=== PATIENT | female | born 1960 | race Caucasian/White ===

== ENCOUNTER 2018-02-16 00:02 | Inpatient (IN) ==
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
[2018-02-16 03:08] LABS: Baso % (Auto) 0.4 % (0.0-2.0); Eos % (Auto) 0.2 % (0.0-4.0); Hematocrit 31.6 % (35.0-46.0); Hemoglobin 10.8 gm/dL (11.6-15.3); Lymph # (Auto) 1.9 th/mm3 (1.0-4.8); Lymph % (Auto) 17.7 % (9.0-44.0); Mean Corpuscular HGB Conc 34.4 % (32.0-36.0); Mean Corpuscular Hemoglobin 32.9 pg (27.0-34.0); Mean Corpuscular Volume 95.9 fL (80.0-100.0); Mean Platelet Volume 7.6 fL (7.0-11.0); Mono # (Auto) 1.3 th/mm3 (0.0-0.9); Mono % (Auto) 12.3 % (0.0-8.0); Neut # (Auto) 7.6 th/mm3 (1.8-7.7); Neut % (Auto) 69.4 % (16.0-70.0); Platelet Count 249 th/mm3 (150-450); Red Blood Count 3.29 mil/mm3 (4.00-5.30); Red Cell Distribution Width 14.2 % (11.6-17.2)
[2018-02-16 03:37] LABS: Albumin 3.6 g/dL (3.4-5.0); Anion Gap 15 meq/L (5-15); Aspartate Aminotransferase 24 U/L (15-37); Blood Urea Nitrogen 4 mg/dL (7-18); Calcium 8.5 mg/dL (8.5-10.1); Carbon Dioxide 23.2 meq/L (21.0-32.0); Chloride 90 meq/L (98-107); Glomerular Filtration Rate Greater Than 89 mL/min (>89); Glucose,Random 86 mg/dL (74-106); Potassium 3.3 meq/L (3.5-5.1); Sodium 128 meq/L (136-145)
[2018-02-16 03:40] LABS: Alanine Aminotransferase 13 U/L (10-53); Alkaline Phosphatase 80 U/L (45-117); Total Protein 7.1 g/dL (6.4-8.2)
[2018-02-16] MEDS ORDERED: Chlorhexidine Gluconate 2% 1 Pack (2 Cloths) TOPICAL PRN (04:00)
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
[2018-02-16] MEDS: HYDROmorphone PF Inj 2 MG/ML Vial IV.PUSH PRN ×3 (04:55→10:04)
[2018-02-16] MEDS: Sod Chloride 0.9% Inj 1,000 ML IV.CONT SCH ×3 (05:22→22:20)
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
[2018-02-16] MEDS ORDERED: Potassium Chlor 20 mEq Premix 20 MEQ/100 ML PIGGYBACK IV.SIG ONE (08:00)
[2018-02-16] MEDS: Chlorhexidine Gluconate 2% 1 Pack (2 Cloths) TOPICAL SCH (08:29)
[2018-02-16] MEDS: Famotidine 20 MG Tablet PO SCH ×2 (08:55→20:00)
[2018-02-16] MEDS: Senna/Docusate Sodium 8.6/50 MG Tablet PO SCH ×2 (08:55→20:01)
--- NOTE | 2018-02-16 09:37 | XR ---
EXAM DATE: 02/16/2018 9:34 AM EDT AGE/SEX: 57 years / Female INDICATIONS: Pain. CLINICAL DATA: This is the patient's subsequent encounter. Patient reports that signs and symptoms h ave been present for 1 day and indicates a pain score of Nonresponsive. MEDICAL/SURGICAL HISTORY: Non-responsive. Non-responsive. COMPARISON: [facility] [place], [place], CT CHEST W CONTRAST, 02/16/2018. . FINDINGS: Single AP portable view of the left shoulder demonstrates a comminuted mildly displaced fracture of t he left humeral head. There is callus formation at the surgical neck consistent with a prior fracture . The bones appear normal in mineralization. CONCLUSION: Comminuted mildly displaced fracture of the left humeral head. Electronically signed by: Chasidy Moreno MD 02/16/2018 9:36 AM EDT
--- NOTE | 2018-02-16 09:39 | XR ---
EXAM DATE: 02/16/2018 9:33 AM EDT AGE/SEX: 57 years / Female INDICATIONS: Pain. CLINICAL DATA: This is the patient's subsequent encounter. Patient reports that signs and symptoms h ave been present for 1 day and indicates a pain score of Nonresponsive. MEDICAL/SURGICAL HISTORY: Non-responsive. Non-responsive. COMPARISON: [facility] [place], CT CHEST W CONTRAST, 02/16/2018. . FINDINGS: Comminuted fracture involving the distal right clavicle. Surgical plate and screws traverse the right humeral head. There is a fracture through the surgical neck. CONCLUSION: Comminuted fractures involving the distal right clavicle and surgical neck of the right humerus. Electronically signed by: Chasidy Moreno MD 02/16/2018 9:37 AM EDT
[2018-02-16] MEDS ORDERED: Metoprolol Tartrate 25 MG Tablet PO SCH (11:00)
--- NOTE | 2018-02-16 11:39 | MB ---
cc: Zenon Lewis MD DATE: 02/16/2018 REASON FOR CONSULTATION: Bilateral shoulder fractures. HISTORY OF PRESENT ILLNESS: This patient is a middle age female who was initially transferred from [facility]. She was initially in a [place] [facility] facility and was initially brought to [facility] after a reported fall and was found on the floor. They did CT scans of the head and neck and she was diagnosed with multiple compression fractures of the thoracic spine. She was also diagnosed with a left humerus fracture. She was transferred to the General Surgery trauma surgeon, Dr. Luevano, who accepted the transfer and the patient has been placed in the intensive care unit. Orthopedic Surgery has been consulted for evaluation of her left proximal humerus fracture and right clavicle fracture. The patient is a very poor historian. She states she has poor balance and multiple falls, but it is hard to get any further detailed history from the patient regarding her past history. PAST MEDICAL HISTORY: Positive for multiple falls. SOCIAL HISTORY: Nonsmoker, nondrinker, does not use drugs. REVIEW OF SYSTEMS: She is awake and alert, but again forgetful. She does complain of back pain, but otherwise negative for 10 systems other than HPI. PHYSICAL EXAMINATION: GENERAL: The patient is lying in bed. She has a cervical collar intact. She is awake. She is alert. She is a poor historian. She is in no acute distress. VITAL SIGNS: Temperature is 98, pulse is 89, respiration rate is 16, blood pressure 109/79. HEENT: Normocephalic, atraumatic. Pupils round. No scleral icterus. NECK: Supple. LUNGS: Clear. HEART: Regular rate and rhythm. ABDOMEN: Soft, nontender. EXTREMITIES: She is currently wearing a sling to her left upper extremity. She has swelling, tender to palpation of the left shoulder with restricted passive motion associated with pain. She can flex and extend her wrist and digits distally. Neurovascularly intact distally. Right shoulder has tenderness in the region of the distal clavicle. Again pain with passive motion of the right shoulder. She is neurovascularly intact distally. IMAGING STUDIES: X-rays of the left shoulder were reviewed. Portable AP view obtained in the intensive care unit showed evidence of a comminuted proximal humerus fracture which is in relatively good displacement. X-rays of the right clavicle shows an acute distal clavicle fracture which is in relatively good alignment. She appears to have evidence of prior open reduction and internal fixation of a right proximal humerus fracture with a proximal locking plate intact. The fracture and hardware are only partially visualized on this film. IMPRESSION: This is a middle-aged female, poor historian, history of a recent fall. She has a left comminuted proximal humerus fracture which is in good alignment. She has a right distal third clavicle fracture. She has a history of prior open reduction and internal fixation of a right clavicle fracture with a proximal locking plate only partially visualized on x-rays of the clavicle. She has multiple age indeterminate thoracic spine compression fractures based on CT scan. PLAN: I discussed the diagnosis with the patient and in regard to orthopedic standpoint, I would recommend nonoperative treatment for the left proximal humerus fracture with use of a sling and swathe immobilizer. She can use a sling for the right distal clavicle fracture as well. I expect this to heal without surgery. I have also ordered an x-ray of the right shoulder to further detail her prior injury and to make sure the hardware is still intact. I would defer the multiple thoracic spine fractures and treatment to neurosurgery. I discussed the findings with the patient and patient's questions have all been answered. MD LINWOOD Veliz/BRET , 10:52 AM , 11:37 AM
--- NOTE | 2018-02-16 11:43 | XR ---
EXAM DATE: 02/16/2018 11:38 AM EDT AGE/SEX: 57 years / Female INDICATIONS: Pain CLINICAL DATA: This is the patient's subsequent encounter. Patient reports that signs and symptoms h ave been present for 1 day and indicates a pain score of Nonresponsive. MEDICAL/SURGICAL HISTORY: Non-responsive. Non-responsive. COMPARISON: [facility] [place], [place], 02/16/2018. . FINDINGS: Single AP portable view of the right shoulder demonstrates a comminuted fracture involving the distal right clavicle. There is surgical plate and screws traversing a right surgical neck fracture. There appears to be normal glenohumeral alignment. The ribs appear intact. CONCLUSION: Comminuted fracture involving the distal right clavicle. Surgical hardware traversing a right femoral neck fracture. Chronicity of this fracture is unknown. Electronically signed by: Chasidy Moreno MD 02/16/2018 11:42 AM EDT
--- NOTE | 2018-02-16 12:48 | P.HPCC ---
History of Present Illness Primary Care Physician: UNKNOWN History of Present Illness: 57-year-old female transfer from outside institution after a fall, report was that patient had a T1 compression fracture, right humeral head fracture. Imaging performed here does not confirm these finding, patient has multiple old subacute T-spine fractures. She has right humeral head fracture, she is neurologically intact hemodynamically normal. Inpatient Certification: I certify that the inpatient services were ordered in accordance with Medicare regulations governing the order. This includes certification that hospital inpatient services are reasonable and necessary and in the case of services not specified as inpatient-only under 42 CFR 419.22(n), that they are appropriately provided as inpatient services in accordance to with the 2-midnight benchmark under 43 CFR 412.3(e) Estimated Total Length of Stay (Days): 5 Plans for Post Hospital Care: Home Review of Systems Constitutional: Reports body ache(s), Reports fatigue, Denies anorexia, Denies chills, Denies daytime sleepiness, Denies excessive sweating, Denies fever(s), Denies headache(s), Denies increased appetite, Denies lack of energy, Denies malaise, Denies night sweats, Denies weakness, Denies weight gain, Denies weight loss, Denies other Eyes: Denies blind spots, Denies blurry vision, Denies bulging eyes, Denies change in vision, Denies double vision, Denies discharge, Denies dry eyes, Denies floaters, Denies irritation, Denies itchy eyes, Denies loss of vision, Denies pain, Denies requires corrective lenses, Denies sensitivity to light, Denies other Ears, Nose, Mouth, and Throat: Denies abnormal hearing, Denies bleeding gums, Denies bad breath, Denies change in voice, Denies dental pain, Denies difficulty swallowing, Denies dizziness, Denies dry mouth, Denies ear discharge , Denies ear pain, Denies facial pain, Denies headache(s), Denies hearing loss, Denies hoarseness, Denies lip swelling, Denies nosebleed, Denies mouth lesions, Denies mouth pain, Denies nasal congestion, Denies nasal discharge, Denies nasal obstruction, Denies nasal trauma, Denies neck lump, Denies neck pain, Denies nose pain, Denies pain with swallowing, Denies poor balance, Denies post nasal drip, Denies ringing in the ears, Denies sinus pain, Denies sinus pressure , Denies sore throat, Denies throat swelling, Denies tongue swelling, Denies other Cardiovascular: Denies chest pain, Denies chest pain at rest, Denies chest pain with activity, Denies excessive sweating, Denies fainting, Denies fast heart rate, Denies foot swelling, Denies generalized swelling, Denies irregular heart rhythm, Denies leg pain with activity, Denies leg sores, Denies leg swelling, Denies lightheadedness, Denies radiating jaw, neck or arm pain, Denies rapid, pounding, or irregular heartbeat, Denies shortness of breath, Denies shortness of breath with activity, Denies shortness of breath when lying down, Denies shortness of breath causing sudden awakening, Denies slow heart rate, Denies other Respiratory: Denies change in phlegm color, Denies chest congestion, Denies cough, Denies coughing up blood, Denies excessive phlegm production, Denies pain on inspiration, Denies pain with cough, Denies shortness of breath, Denies shortness of breath with activity, Denies snoring, Denies stridor, Denies wheezing, Denies other Gastrointestinal: Denies abdominal pain, Denies belching, Denies black, tarry stools, Denies bloating, Denies bright, red blood in stools, Denies change in bowel habits, Denies constant urge to pass stool, Denies change in stools, Denies coffee ground vomit, Denies constipation, Denies cramping, Denies difficulty swallowing, Denies excessive passing of gas, Denies feeling full early, Denies heartburn, Denies incontinent of stools, Denies loose stools, Denies nausea, Denies pain with swallowing, Denies vomiting, Denies vomiting blood, Denies other Musculoskeletal: Denies abnormal walking, Denies back pain, Denies body aches, Denies decreased muscle mass, Denies deformity, Denies joint pain, Denies joint swelling, Denies limited joint movement, Denies loss of height, Denies muscle cramps, Denies muscle weakness, Denies neck pain, Denies numbness, Denies radiating pain into limb, Denies stiffness, Denies tingling, Denies other Skin/Breast: Denies acne, Denies bleeding lesions, Denies boil, Denies breast swelling, Denies breast skin changes, Denies breast pain, Denies breast lump, Denies change in breast shape, Denies change in hair, Denies change in skin color, Denies changing lesions, Denies dry skin, Denies excessive hair growth, Denies hair loss, Denies itching, Denies lesions, Denies nail changes, Denies new lesions, Denies nipple discharge, Denies non-healing lesions, Denies redness , Denies sensitivity to light, Denies rash, Denies skin pain, Denies skin ulcer , Denies sores, Denies stretch jimenez, Denies unusual bruising, Denies wounds, Denies yellowing of the skin, Denies other Neurologic: Denies abnormal hearing, Denies abnormal movements, Denies abnormal speech, Denies abnormal walking, Denies behavioral changes, Denies burning sensations, Denies confusion, Denies dizziness, Denies fainting, Denies frequent falls, Denies headache(s), Denies lack of coordination, Denies localized weakness, Denies loss of vision, Denies memory loss, Denies numbness, Denies other visual disturbances, Denies radiating pain, Denies restless legs, Denies convulsions, Denies seizure-like activity, Denies sensory deficit, Denies tingling, Denies tingling/numbness/burning sensations, Denies tremor(s), Denies unsteadiness, Denies weakness, Denies other Psychiatric: Denies abnormal sleep pattern, Denies anxiety, Denies behavioral changes, Denies change in appetite, Denies change in sex drive, Denies confusion , Denies depression, Denies difficulty concentrating, Denies hearing things others do not hear, Denies hopelessness, Denies irritability, Denies lack of enjoyment, Denies memory loss, Denies mood swings, Denies panic attacks, Denies paranoia, Denies seeing things others do not see, Denies sensing things others do not sense, Denies tactile hallucinations, Denies thoughts of hurting/killing others, Denies thoughts of hurting/killing yourself, Denies other Endocrine: Denies cold intolerance, Denies excessive sweating, Denies flushing, Denies heat intolerance, Denies increased hunger, Denies increased thirst, Denies increased urination, Denies rapid, pounding, or irregular heartbeat, Denies other Hematologic/Lymphatic: Denies easy bleeding, Denies easy bruising, Denies enlarged lymph nodes, Denies other Allergic/Immunologic: Denies GI upset with certain foods, Denies hives, Denies itchy eyes, Denies lip swelling, Denies seasonal runny nose, Denies throat swelling, Denies tongue swelling, Denies wheezing, Denies other PMFSH - History History Provided By: Patient - Tobacco History Second Hand Smoke Exposure: No Tobacco Use In Past 30 Days: No Smoking Status: Former smoker Tobacco Type: Cigarettes - Alcohol History How Often Do You Have a Drink Containing Alcohol: 2 to 3 times a week - Substance Use History Substance History: No History of Abuse - Immunization History Tetanus Immunization: Unsure Hx Influenza Vaccine This Season: No Medications and Allergies Active Medications: Active Medications Al Hydroxide/Mg Hydroxide (Milk Of Rich Zamudio) 30 ml PO BID [facility] Last Admin: 02/16/18 08:55 Dose: Not Given Chlorhexidine Gluconate (Chlorhexidine 2% Cloth) 3 pack TOPICAL DAILY@0400 [facility] Stop: 02/21/18 03:59 Last Admin: 02/16/18 08:29 Dose: Not Given Chlorhexidine Gluconate (Chlorhexidine 2% Cloth) 3 pack TOPICAL DAILY@0400 PRN PRN Reason: Extra cloth needed Stop: 02/21/18 03:59 Enalaprilat (Vasotec Inj) 1.25 mg IV.PUSH Q8H PRN PRN Reason: HYPERTENSION Last Admin: 02/16/18 11:16 Dose: 1.25 mg Famotidine (Pepcid) 20 mg PO BID [facility] Last Admin: 02/16/18 08:55 Dose: Not Given Hydromorphone HCl (Dilaudid Pf Inj) 0.5 mg IV.PUSH Q4H PRN PRN Reason: BREAKTHROUGH PAIN Last Admin: 02/16/18 10:04 Dose: 0.5 mg Sodium Chloride (Ns Inj) 1,000 mls @ 100 mls/hr IV.CONT .Q10H [facility] Last Admin: 02/16/18 12:29 Dose: 100 mls/hr Metoprolol Tartrate (Lopressor) 12.5 mg PO BID [facility] Ondansetron HCl (Zofran Inj) 4 mg IV.PUSH Q6H PRN PRN Reason: NAUSEA OR VOMITING Last Admin: 02/16/18 09:05 Dose: 4 mg Senna/Docusate Sodium (Althea-Colace) 1 tab PO BID [facility] Last Admin: 02/16/18 08:55 Dose: Not Given Allergies Allergy/AdvReac Type Severity Reaction Status Date / Time No Known Allergies Allergy Unverified 02/16/18 01:13 Home Medications Medication Instructions Recorded Confirmed Type No Known Home Medications 02/16/18 02/16/18 History Results - Labs CBC & Chem 7: 02/16/18 02:50 02/16/18 02:50 Labs: Short CBC 02/16/18 Range/Units 02:50 WBC 11.0 (4.0-11.0) th/mm3 Hgb 10.8 L (11.6-15.3) gm/dL Hct 31.6 L (35.0-46.0) % Plt Count 249 (150-450) th/mm3 BMP 02/16/18 02:50 Sodium 128 L Potassium 3.3 L Chloride 90 L Carbon Dioxide 23.2 BUN 4 L Creatinine 0.48 L Calcium 8.5 Liver Function 02/16/18 Range/Units 02:50 Total Bilirubin 0.5 (0.2-1.0) mg/dL AST 24 (15-37) U/L ALT 13 (10-53) U/L Alkaline Phosphatase 80 (45-117) U/L Albumin 3.6 (3.4-5.0) g/dL - Imaging Impressions Abdomen/Pelvis CT 02/16/18 00:00 CONCLUSION: No acute traumatic injury in the abdomen or pelvis. Cervical Spine CT 02/16/18 00:00 CONCLUSION: No acute bony injury in the cervical spine Chest CT 02/16/18 00:00 CONCLUSION: 1. Left proximal humeral fracture. Right clavicle fracture. Further evaluation of these areas with complete plain radiographic series of the left shoulder and right clavicle would be suggested. 2. No acute intrathoracic injury Clavicle X-Ray 02/16/18 00:00 CONCLUSION: Comminuted fractures involving the distal right clavicle and surgical neck of the right humerus. Head CT 02/16/18 00:00 CONCLUSION: No acute intracranial injury. Shoulder X-Ray 02/16/18 00:00 CONCLUSION: Comminuted mildly displaced fracture of the left humeral head. Shoulder X-Ray 02/16/18 00:00 CONCLUSION: Comminuted fracture involving the distal right clavicle. Surgical hardware traversing a right femoral neck fracture. Chronicity of this fracture is unknown. Thoracic Spine CT 02/16/18 02:11 CONCLUSION: Compression fracture injuries present throughout the visualized spine Exam Vital signs: Vital Signs 02/16/18 01:16 02/16/18 01:24 02/16/18 02:35 Temperature 98.6 F Pulse Rate 89 94 H Respiratory Rate 16 17 16 Blood Pressure 109/79 175/89 H 169/95 H Pulse Oximetry 98 98 100 02/16/18 07:34 02/16/18 08:00 02/16/18 09:00 Temperature 98.7 F Pulse Rate 86 78 85 Respiratory Rate 13 12 Blood Pressure 165/84 H 165/79 H Pulse Oximetry 97 94 L 02/16/18 12:00 Temperature 98.9 F Pulse Rate 72 Respiratory Rate 19 Blood Pressure 169/82 H Pulse Oximetry 100 Intake & Output 02/15/18 02/16/18 02/16/18 18:59 06:59 18:59 Intake Total 1100 / 1100 Balance 1100 / 1100 Weight 66.224 kg Intake: IV 1100 / 1100 NS Inj 1,000 ML @ 100 mls/hr IV 1000 / 1000 .CONT .Q10H [facility] Rx#:[id number] KCl 20 mEq Premix Inj 20 meq In 100 / 100 100 ml @ 50 mls/hr IV.SIG ONCE ONE Rx#:[id number] Other: Date of Last Bowel Movement 02/15/18 - Constitutional no acute distress - Routine HEENT Exam Head: Present: normocephalic, atraumatic Eye: Present: EOMI, PERRL, normal accommodation ENT: Present: mucous membranes moist, oropharynx clear, dentition normal - Routine Neck Exam Present: supple, full ROM - Routine Respiratory Exam Present: CTA bilaterally - Routine Abdominal Exam Present: soft, normoactive bowel sounds - Routine Extremities Exam Present: full ROM, pulses intact Comments: Right shoulder humerus head tender - Routine Skin Exam Present: intact - Routine Neurological Exam Present: alert, oriented X3 Caprini VTE Risk Assessment Caprini VTE Risk Assessment: No/Low Risk (score <= 1) Caprini Risk Assessment Model: Point Value = 1 Point Value = 2 Point Value = 3 Point Value = 5 Age 41-60 Minor surgery BMI > 25 kg/m2 Swollen legs Varicose veins or History of unexplained or recurrent spontaneous Oral contraceptives or hormone replacement Sepsis (< 1 month) Serious lung disease, including pneumonia (< 1 month) Abnormal pulmonary function Acute myocardial infarction Congestive heart failure (< 1 month) History of inflammatory bowel disease Medical patient at bed rest Age 61-74 Arthroscopic surgery Major open surgery (> 45 min) Laparoscopic surgery (> 45 min) Malignancy Confined to bed (> 72 hours) Immobilizing plaster cast Central venous access Age >= 75 History of VTE Family history of VTE Factor V Leiden Prothrombin [id number] Lupus anticoagulant Anticardiolipin antibodies Elevated serum homocysteine Heparin-induced thrombocytopenia Other congenital or acquired thrombophilia Stroke (< 1 month) Elective arthroplasty Hip, pelvis, or leg fracture Acute spinal cord injury (< 1 month) Prophylaxis Regimen: Total Risk Factor Score Risk Level Prophylaxis Regimen 0-1 Low Early ambulation 2 Moderate Order ONE of the following: *Sequential Compression Device (SCD) *Heparin 5000 units SQ BID 3-4 Higher Order ONE of the following medications: *Heparin 5000 units SQ TID *Enoxaparin/Lovenox 40 mg SQ daily (WT < 150 kg, CrCl > 30 mL/min) *Enoxaparin/Lovenox 30 mg SQ daily (WT < 150 kg, CrCl > 10-29 mL/min) *Enoxaparin/Lovenox 30 mg SQ BID (WT < 150 kg, CrCl > 30 mL/min) AND/OR *Sequential Compression Device (SCD) 5 or more Highest Order ONE of the following medications: *Heparin 5000 units SQ TID (Preferred with Epidurals) *Enoxaparin/Lovenox 40 mg SQ daily (WT < 150 kg, CrCl > 30 mL/min) *Enoxaparin/Lovenox 30 mg SQ daily (WT < 150 kg, CrCl > 10-29 mL/min) *Enoxaparin/Lovenox 30 mg SQ BID (WT < 150 kg, CrCl > 30 mL/min) AND *Sequential Compression Device (SCD) Assessment and Plan - Assessment and Plan Plan: humeral head fracture Likely old/subacute vertebral fracture Neurosurgical consult to clear patient for ambulation Pain control Orthopedic consult Transfer floor seen by neurosurgery DVT prophylaxis H&P: Quality - VTE Deep Vein Thrombosis/Pulmonary Embolism Present on Admission: No
[2018-02-16] MEDS ORDERED: Promethazine 25 MG Supp RECTAL ONE (14:34)
[2018-02-16] MEDS ORDERED: Morphine Inj 4 MG/ML Vial IV.PUSH PRN (16:52)
[2018-02-16] MEDS: amLODIPine 5 MG Tablet PO SCH (20:02)
[2018-02-16] MEDS: Metoprolol Tartrate 25 MG Tablet PO SCH (21:49)
--- NOTE | 2018-02-16 23:59 | P.CONNS ---
History of Present Illness Service: Neurosurgery Consult date: 02/16/18 Requesting Physician: Alisha Luevano Reason for Consult: Spine fracture Primary Care Provider: UNKNOWN Chief Complaint: Back pain History of Present Illness: 57-year-old female transferred to [place] emergency room [facility]. No definite loss of consciousness. No complaint of weakness numbness pain in the extremities. Positive scapular- shoulder discomfort. No complaint of bowel or bladder dysfunction. She has some low back pain. Review of Systems Constitutional: Reports body ache(s), Reports fatigue, Denies headache(s) Eyes: Denies blurry vision, Denies double vision Cardiovascular: Denies chest pain, Denies irregular heart rhythm Respiratory: Denies coughing up blood, Denies shortness of breath Gastrointestinal: Denies abdominal pain Musculoskeletal: Reports back pain, Reports body aches, Denies neck pain, Denies radiating pain into limb, Denies tingling Neurologic: Denies frequent falls, Denies memory loss Hematologic/Lymphatic: Denies easy bleeding PMFSH - History History Provided By: Patient - Medical History Medical History: Medical History (Last Reviewed 02/17/18 @ 16:34 by Chapito Quiroz) Fracture Fracture Hypertension - Tobacco History Second Hand Smoke Exposure: No Tobacco Use In Past 30 Days: No Smoking Status: Former smoker Tobacco Type: Cigarettes - Alcohol History How Often Do You Have a Drink Containing Alcohol: 2 to 3 times a week - Substance Use History Substance History: No History of Abuse - Immunization History Tetanus Immunization: Unsure Hx Influenza Vaccine This Season: No Medications and Allergies Active Medications: Active Medications Al Hydroxide/Mg Hydroxide (Milk Of Rich Zamudio) 30 ml PO BID [facility] Last Admin: 02/16/18 20:04 Dose: Not Given Amlodipine Besylate (Norvasc) 5 mg PO DAILY [facility] Last Admin: 02/16/18 20:02 Dose: 5 mg Chlorhexidine Gluconate (Chlorhexidine 2% Cloth) 3 pack TOPICAL DAILY@0400 [facility] Stop: 02/21/18 03:59 Last Admin: 02/16/18 08:29 Dose: Not Given Chlorhexidine Gluconate (Chlorhexidine 2% Cloth) 3 pack TOPICAL DAILY@0400 PRN PRN Reason: Extra cloth needed Stop: 02/21/18 03:59 Enalaprilat (Vasotec Inj) 2.5 mg IV.PUSH Q8H PRN PRN Reason: SEE LABEL COMMENTS Last Admin: 02/16/18 17:40 Dose: 2.5 mg Famotidine (Pepcid) 20 mg PO BID [facility] Last Admin: 02/16/18 20:00 Dose: 20 mg Sodium Chloride (Ns Inj) 1,000 mls @ 100 mls/hr IV.CONT .Q10H [facility] Last Admin: 02/16/18 22:20 Dose: 100 mls/hr Acetaminophen (Ofirmev Inj) 1,000 mg in 100 mls @ 400 mls/hr IV.SIG Q6H [facility] Stop: 02/17/18 11:14 Last Admin: 02/16/18 23:15 Dose: 400 mls/hr Metoclopramide HCl (Reglan Inj) 10 mg IV.PUSH Q6H PRN PRN Reason: NAUSEA Metoprolol Tartrate (Lopressor) 25 mg PO BID [facility] Last Admin: 02/16/18 21:49 Dose: 25 mg Morphine Sulfate (Morphine Inj) 4 mg IV.PUSH Q3H PRN PRN Reason: PAIN 1-10 Ondansetron HCl (Zofran Inj) 4 mg IV.PUSH Q6H PRN PRN Reason: NAUSEA OR VOMITING Last Admin: 02/16/18 09:05 Dose: 4 mg Senna/Docusate Sodium (Althea-Colace) 1 tab PO BID [facility] Last Admin: 02/16/18 20:01 Dose: 1 tab Allergies Allergy/AdvReac Type Severity Reaction Status Date / Time No Known Allergies Allergy Unverified 02/16/18 01:13 Home Medications Medication Instructions Recorded Confirmed Type No Known Home Medications 02/16/18 02/16/18 History Exam Vital signs: Vital Signs 02/16/18 01:16 02/16/18 01:24 02/16/18 02:35 Temperature 98.6 F Pulse Rate 89 94 H Respiratory Rate 16 17 16 Blood Pressure 109/79 175/89 H 169/95 H Pulse Oximetry 98 98 100 02/16/18 07:34 02/16/18 08:00 02/16/18 09:00 Temperature 98.7 F Pulse Rate 86 78 85 Respiratory Rate 13 12 Blood Pressure 165/84 H 165/79 H Pulse Oximetry 97 94 L 02/16/18 12:00 02/16/18 14:00 02/16/18 16:00 Temperature 98.9 F 99 F Pulse Rate 72 81 75 Respiratory Rate 19 12 Blood Pressure 169/82 H 199/93 H Pulse Oximetry 100 97 02/16/18 18:00 02/16/18 20:00 Temperature 97.7 F Pulse Rate 63 64 Respiratory Rate 15 Blood Pressure 164/95 H Pulse Oximetry Intake & Output 02/16/18 02/16/18 02/17/18 06:59 18:59 06:59 Intake Total 1750 / 1750 1000 / 1000 Output Total 1225 / 1225 Balance 525 / 525 1000 / 1000 Weight 66.224 kg Intake: IV 1200 / 1200 1000 / 1000 NS Inj 1,000 ML @ 100 mls/hr IV 1000 / 1000 1000 / 1000 .CONT .Q10H [facility] Rx#:[id number] Ofirmev Inj 1,000 mg In 100 ml 100 / 100 @ 400 mls/hr IV.SIG Q6H [facility] Rx# :[id number] KCl 20 mEq Premix Inj 20 meq In 100 / 100 100 ml @ 50 mls/hr IV.SIG ONCE ONE Rx#:[id number] Oral 550 / 550 Output: Urine 1225 / 1225 Other: # Voids 1 Date of Last Bowel Movement 02/15/18 # Bowel Movements 0 Narrative: General: Normally developed lady, appears little agitated or anxious during the examination. Head: No significant lacerations tenderness or contusion. HEENT: No CSF otorrhea or rhinorrhea. Moderate left facial contusion and ecchymosis. Respirations: Clear to auscultation Cardiac: Regular pulse Abdomen: Soft nontender Extremities: No significant extremity edema. Posterior tibial pulse 2+ bilateral Neurologic: Mild dysarthria-probable baseline. Awake and alert conversant appropriate Speech appropriate. Reasonable judgment and insight No evidence of anxiety or depression Extraocular movements intact Facial motor movements symmetric Sensation intact light touch all extremities Strength within normal limits major flexion-extension groups all extremities Lepe's response absent bilateral No ankle clonus Plantar responses are mildly flexor Fine motor movements intact upper extremities Results - Laboratory Findings CBC and BMP: 02/18/18 02:53 02/18/18 02:53 Abnormal lab findings: Abnormal Labs 02/16/18 02/16/18 02:50 02:50 RBC 3.29 L Hgb 10.8 L Hct 31.6 L [place] % (Auto) 12.3 H [place] # (Auto) 1.3 H Sodium 128 L Potassium 3.3 L Chloride 90 L BUN 4 L Creatinine 0.48 L Assessment and Plan - Plan Impression: 1. Multiple thoracic and lumbar spine fractures noted on initial CT scan imaging. Acute versus chronic. Plan: Findings discussed with patient Recommend proceeding with MRI thoracic and lumbar spine to help determine the chronicity of the multiple fractures. May cautiously mobilize out of bed. Hold brace and any strenuous activity pending MRI studies.
[2018-02-17] MEDS: Chlorhexidine Gluconate 2% 1 Pack (2 Cloths) TOPICAL SCH (05:13)
[2018-02-17 05:24] LABS: Baso # (Auto) 0.1 th/mm3 (0.0-0.2); Baso % (Auto) 0.7 % (0.0-2.0); Eos % (Auto) 0.4 % (0.0-4.0); Hematocrit 29.7 % (35.0-46.0); Hemoglobin 10.3 gm/dL (11.6-15.3); Lymph # (Auto) 1.7 th/mm3 (1.0-4.8); Lymph % (Auto) 22.5 % (9.0-44.0); Mean Corpuscular HGB Conc 34.7 % (32.0-36.0); Mean Corpuscular Hemoglobin 33.5 pg (27.0-34.0); Mean Corpuscular Volume 96.5 fL (80.0-100.0); Mean Platelet Volume 8.6 fL (7.0-11.0); Mono # (Auto) 1.1 th/mm3 (0.0-0.9); Mono % (Auto) 14.4 % (0.0-8.0); Neut # (Auto) 4.8 th/mm3 (1.8-7.7); Platelet Count 213 th/mm3 (150-450); Red Blood Count 3.08 mil/mm3 (4.00-5.30); White Blood Count 7.7 th/mm3 (4.0-11.0)
[2018-02-17 05:40] LABS: Anion Gap 14 meq/L (5-15); Blood Urea Nitrogen 6 mg/dL (7-18); Carbon Dioxide 24.4 meq/L (21.0-32.0); Chloride 95 meq/L (98-107); Glomerular Filtration Rate Greater Than 89 mL/min (>89); Glucose,Random 78 mg/dL (74-106); Potassium 3.1 meq/L (3.5-5.1); Sodium 133 meq/L (136-145)
[2018-02-17] MEDS: Metoprolol Tartrate 25 MG Tablet PO SCH ×2 (08:14→23:58)
[2018-02-17] MEDS: amLODIPine 5 MG Tablet PO SCH (08:14)
[2018-02-17] MEDS: Senna/Docusate Sodium 8.6/50 MG Tablet PO SCH (08:14)
[2018-02-17] MEDS: Famotidine 20 MG Tablet PO SCH ×2 (08:15→23:59)
[2018-02-17] MEDS ORDERED: Potassium Chloride 25 MEQ Effervescent Tablet PO ONE ×2 (08:25→18:00)
--- NOTE | 2018-02-17 13:49 | P.PNCC ---
Subjective Brief History: humerus fracture Likely old vertebral fractures of the T SPINE 24 Hour Review/Hospital Course: 02/17 Remains stable Complains pain of the site of the fractured humerus Daria Coma Score is 15 abdomen-soft Hemodynamically normal Objective Vital Signs / I&O: Vital Signs 02/16/18 14:00 02/16/18 16:00 02/16/18 18:00 Temperature 99 F Pulse Rate 81 75 63 Respiratory Rate 12 Blood Pressure 199/93 H Pulse Oximetry 97 02/16/18 20:00 02/17/18 00:00 02/17/18 04:00 Temperature 97.7 F 98.0 F 97.9 F Pulse Rate 64 65 Respiratory Rate 15 16 16 Blood Pressure 164/95 H 167/80 H 133/64 Pulse Oximetry 02/17/18 08:00 02/17/18 12:00 Temperature 98 F 98 F Pulse Rate 79 Respiratory Rate 18 Blood Pressure 131/66 162/78 H Pulse Oximetry 10 L Intake & Output 02/16/18 02/17/18 02/17/18 18:59 06:59 18:59 Intake Total 1750 / 1750 1200 / 1200 Output Total 1225 / 1225 700 / 700 Balance 525 / 525 500 / 500 Weight 53.4 kg Intake: IV 1200 / 1200 1200 / 1200 NS Inj 1,000 ML @ 100 mls/hr IV 1000 / 1000 1000 / 1000 .CONT .Q10H [facility] Rx#:[id number] Ofirmev Inj 1,000 mg In 100 ml 100 / 100 200 / 200 @ 400 mls/hr IV.SIG Q6H [facility] Rx# :[id number] KCl 20 mEq Premix Inj 20 meq In 100 / 100 100 ml @ 50 mls/hr IV.SIG ONCE ONE Rx#:[id number] Oral 550 / 550 Output: Urine 1225 / 1225 700 / 700 Other: # Voids 1 Date of Last Bowel Movement 02/15/18 02/15/18 # Bowel Movements 0 Result Diagrams: 02/17/18 03:57 02/17/18 03:57 Disinhibition Score: 14.00 Aggression Score: 14.00 Lability Score: 14.00 Agitated Behavior Total Score: 14 - Exam [employer]ATOR: Daria Coma Score is 15 Hemodynamic/Cardiac: Blood pressure is stable Pulmonary/Respiratory: Breath sounds clear bilateral Abdomen/GI Nutrition: Abdomen is soft benign Renal/I&O: Sodium 133 is improving Assessment and Plan Plan: Humerus fracture nonsurgical as per orthopedic Mobility as per neurosurgery Further treatment of T-spine as per neurosurgery Pain control Transfer floor
[2018-02-17] MEDS ORDERED: Magnesium Oxide 400 MG Tablet PO ONE (14:11)
--- NOTE | 2018-02-17 19:55 | P.PNNS ---
Subjective Interval history: Complains of some pain along the left chest wall. No midline thoracic or lumbar pain. She states that she has had a previous cervical spine fracture, is not aware of any previous lumbar fractures. She apparently resides at an [facility] and uses a walker to ambulate. It is unclear why she has any chronic gait difficulty. Physical Exam Vital signs: Vital Signs 02/16/18 20:00 02/17/18 00:00 02/17/18 04:00 Temperature 97.7 F 98.0 F 97.9 F Pulse Rate 64 65 Respiratory Rate 15 16 16 Blood Pressure 164/95 H 167/80 H 133/64 Pulse Oximetry 02/17/18 08:00 02/17/18 12:00 02/17/18 16:00 Temperature 98 F 98 F 98 F Pulse Rate 79 84 Respiratory Rate 18 16 Blood Pressure 131/66 162/78 H 155/77 H Pulse Oximetry 10 L 99 02/17/18 19:23 Temperature Pulse Rate Respiratory Rate 18 Blood Pressure Pulse Oximetry Intake & Output 02/17/18 02/17/18 02/18/18 06:59 18:59 06:59 Intake Total 1200 / 1200 750 / 750 Output Total 700 / 700 800 / 800 Balance 500 / 500 -50 / -50 Weight 53.4 kg Intake: IV 1200 / 1200 NS Inj 1,000 ML @ 100 mls/hr IV 1000 / 1000 .CONT .Q10H NIXON Rx#:[id number] Ofirmev Inj 1,000 mg In 100 ml 200 / 200 @ 400 mls/hr IV.SIG Q6H NIXON Rx# :[id number] Oral 750 / 750 Output: Urine 700 / 700 800 / 800 Other: Date of Last Bowel Movement 02/15/18 Narrative: General: Normally developed lady in no apparent distress She is awake and alert. She has mild dysarthric speech. Somewhat scanning type speech pattern. Respirations clear and regular Abdomen soft nontender No significant extremity edema Neck nontender Sensation intact light touch all extremities Strength within normal limits major flexion-extension groups all extremities except where not tested related to orthopedic injuries. Assessment and Plan - Plan Impression: 1. Multiple thoracic and lumbar spine fractures noted on CT scan. These appear chronic but cannot totally rule out an acute compression fracture. Plan: Discussed with patient Recommend MRI thoracic and lumbar spine to assess for possible acute compression fracture. Dysarthric speech appears to be chronic. Apparent chronic gait difficulty of uncertain etiology.
[2018-02-17] MEDS: Enoxaparin Inj 30 MG/0.3 ML Syringe SQ SCH (23:59)
[2018-02-18 03:52] LABS: Baso % (Auto) 0.5 % (0.0-2.0); Eos # (Auto) 0.1 th/mm3 (0.0-0.4); Hematocrit 29.6 % (35.0-46.0); Hemoglobin 10.5 gm/dL (11.6-15.3); Lymph # (Auto) 1.9 th/mm3 (1.0-4.8); Lymph % (Auto) 23.4 % (9.0-44.0); Mean Corpuscular HGB Conc 35.3 % (32.0-36.0); Mean Corpuscular Hemoglobin 34.2 pg (27.0-34.0); Mean Corpuscular Volume 96.9 fL (80.0-100.0); Mean Platelet Volume 8.4 fL (7.0-11.0); Mono # (Auto) 1.1 th/mm3 (0.0-0.9); Mono % (Auto) 13.8 % (0.0-8.0); Neut % (Auto) 61.3 % (16.0-70.0); Platelet Count 202 th/mm3 (150-450); Red Blood Count 3.06 mil/mm3 (4.00-5.30); Red Cell Distribution Width 14.3 % (11.6-17.2); White Blood Count 8.2 th/mm3 (4.0-11.0)
[2018-02-18 04:14] LABS: Anion Gap 8 meq/L (5-15); Blood Urea Nitrogen 9 mg/dL (7-18); Carbon Dioxide 27.9 meq/L (21.0-32.0); Chloride 96 meq/L (98-107); Glomerular Filtration Rate Greater Than 89 mL/min (>89); Glucose,Random 83 mg/dL (74-106); Magnesium 1.4 mg/dL (1.5-2.5); Potassium 3.8 meq/L (3.5-5.1); Sodium 132 meq/L (136-145)
[2018-02-18] MEDS: Metoprolol Tartrate 25 MG Tablet PO SCH ×2 (09:03→20:23)
[2018-02-18] MEDS: Enoxaparin Inj 30 MG/0.3 ML Syringe SQ SCH ×2 (09:03→20:23)
[2018-02-18] MEDS: Senna/Docusate Sodium 8.6/50 MG Tablet PO SCH ×3 (09:03→20:23)
[2018-02-18] MEDS: Famotidine 20 MG Tablet PO SCH ×2 (09:03→20:23)
[2018-02-18] MEDS: amLODIPine 5 MG Tablet PO SCH (09:03)
--- NOTE | 2018-02-18 10:59 | P.PNNS ---
Subjective Interval history: 02/17: Complains of some pain along the left chest wall. No midline thoracic or lumbar pain. She states that she has had a previous cervical spine fracture, is not aware of any previous lumbar fractures. She apparently resides at an [facility] and uses a walker to ambulate. It is unclear why she has any chronic gait difficulty. 02/18: The patient is seen after returning from [facility] this morning. She complains of pain to the left upper extremity which is in a sling. She does say she has pain to the back. She spontaneously and purposefully moves the right upper and both lower extremities. The midline cervical and thoracolumbar spines are nontender to palpation but the patient is tender to palpation across the left scapula. <Scooby Srivastava E - Last Filed: 02/18/18 11:33> Physical Exam Vital signs: Vital Signs 02/17/18 12:00 02/17/18 16:00 02/17/18 19:23 Temperature 98 F 98 F Pulse Rate 79 84 Respiratory Rate 16 18 Blood Pressure 162/78 H 155/77 H Pulse Oximetry 10 L 99 02/17/18 20:00 02/17/18 22:35 02/18/18 00:00 Temperature 98.7 F 98.7 F Pulse Rate 82 65 74 Respiratory Rate 22 20 Blood Pressure 154/72 H 158/77 H Pulse Oximetry 99 100 02/18/18 04:00 02/18/18 07:51 02/18/18 08:00 Temperature 98.6 F 98.8 F Pulse Rate 72 68 Respiratory Rate 20 14 16 Blood Pressure 151/71 H 166/83 H Pulse Oximetry 96 99 02/18/18 10:00 Temperature Pulse Rate 82 Respiratory Rate Blood Pressure Pulse Oximetry Intake & Output 02/17/18 02/18/18 02/18/18 18:59 06:59 18:59 Intake Total 750 / 750 750 / 750 Output Total 800 / 800 800 / 800 Balance -50 / -50 -50 / -50 Weight 53.4 kg Intake: Oral 750 / 750 750 / 750 Output: Urine 800 / 800 800 / 800 Other: # Voids 1 Date of Last Bowel Movement 02/15/18 02/15/18 02/15/18 # Bowel Movements 0 Narrative: GENERAL: The patient is awake & alert in bed eating breakfast when seen. Her affect is fairly normal & she readily interacts. She is not in any apparent distress. HEENT: Normocephalic, atraumatic. MUSCULOSKELETAL: RUE & BLE NTTP & patient moves spontaneously & purposefully w/ o difficulty. The LUE is in a sling and ecchymosis is noted to the arm, the patient states that it is painful. The midline cervical & thoracolumbar spine are NTTP. The right paraspinals are NTTP. The left paraspinals are TTP at the left scapula o/w they are NTTP. She is TTP across the left scapula. NEUROLOGICAL: AAOx3. Mild dysarthric speech but clear. Sensation is intact to light touch to the RUE & BLE, but the LUE is not evaluated due to her injury. Muscle strength to the right hand intrisics is mildly decreased, o/w it normal to all major flexion & extension muscle groups of the RUE & BLE, but the LUE is not evaluated due to her injury. She does have some referred pain to the low back with motor strength testing of the lower extremities. <Scooby Srivastava E - Last Filed: 02/18/18 11:33> Vital signs: Vital Signs 02/18/18 23:04 02/19/18 00:00 02/19/18 00:10 Temperature 98.0 F Pulse Rate 75 69 Respiratory Rate 18 16 Blood Pressure 152/75 H Pulse Oximetry 96 02/19/18 00:45 02/19/18 04:00 02/19/18 04:11 Temperature 98.1 F Pulse Rate 73 69 Respiratory Rate 16 16 Blood Pressure 141/80 H Pulse Oximetry 96 02/19/18 04:22 02/19/18 08:00 02/19/18 12:00 Temperature 98.0 F 98.2 F Pulse Rate 72 79 Respiratory Rate 18 18 18 Blood Pressure 165/77 H 128/67 Pulse Oximetry 98 99 02/19/18 16:00 Temperature 98.3 F Pulse Rate 77 Respiratory Rate 17 Blood Pressure 138/85 Pulse Oximetry 99 Intake & Output 02/19/18 02/19/18 02/20/18 06:59 18:59 06:59 Intake Total 480 / 480 960 / 960 Balance 480 / 480 960 / 960 Weight 53.4 kg Intake: Oral 480 / 480 960 / 960 Other: # Voids 4 22 Date of Last Bowel Movement 02/15/18 # Bowel Movements 0 3 <Ravi Sheppard - Last Filed: 02/19/18 21:42> Assessment and Plan - Plan Impression: 1. Multiple thoracic and lumbar spine fractures noted on CT scan. These appear chronic but cannot totally rule out an acute compression fracture. The patient is doing well. She continues to have pain to the LUE 2/2 her injury. O/w she is neurologically intact. Past 24 hrs: Afebrile. Intermittently elevated SBP. Reviewed labs for today. Slight increase in haemoglobin level. Sodium 132. Magnesium 1.4. eGFR >89. MRI thoracic & lumbar spines pending. Plan: Primary & critical care management per Trauma. Activity and brace will be determined by MRI results. <Scooby Srivastava - Last Filed: 02/18/18 11:33> - Attending Attestation The exam, history, and the medical decision-making described in the above note were completed with the assistance of the mid-level provider. I reviewed and agree with the findings presented. I attest that I had a [id number] encounter with the patient on the same day, and personally performed and documented my assessment and findings in the medical record. Patient seen and examined by the undersigned on 02/18/2018. No upper or lower extremity sensorimotor deficit. MRI thoracic and lumbar spine pending. <Ravi Sheppard - Last Filed: 02/19/18 21:42>
--- NOTE | 2018-02-18 11:45 | MR ---
EXAM DATE: 02/18/2018 11:35 AM EDT AGE/SEX: 57 years / Female INDICATIONS: . Degeneration of Disc CLINICAL DATA: This is the patient's initial encounter. Patient reports that signs and symptoms have been present for 1 day and indicates a pain score of 3/10. MEDICAL/SURGICAL HISTORY: Hypertension. . Wrist sx, Rt shoulder sx. COMPARISON: No prior exams available for comparison. TECHNIQUE: Multiplanar, multisequence MRI of the thoracic spine was performed. FINDINGS: The marrow signal appears intact. No significant compression deformities are seen. Multiple compress ion deformities are seen without any marrow edema chronic in nature. Approximate 90% compression of L 2, slight anterior wedging of T12, slight superior endplate depression of T10, approximate 90% anteri or wedging of T8. There is however marrow edema involving the superior endplate of L1 due to a subacu te compression fracture without any significant loss of height. There is minimal marrow edema involvi ng the posterior endplate of T12 superiorly only questionable for subtle subacute fracture at this si te. No definite fracture lines are seen. The spinal cord appears intact. T1-T2: No appreciable compromise to the thecal sac, spinal cord, or the exiting nerve roots are seen . The neural foramina are grossly patent bilaterally. T2-T3: No appreciable compromise to the thecal sac, spinal cord, or the exiting nerve roots are seen . The neural foramina are grossly patent bilaterally. T3-T4: No appreciable compromise to the thecal sac, spinal cord, or the exiting nerve roots are seen . The neural foramina are grossly patent bilaterally. T4-T5: No appreciable compromise to the thecal sac, spinal cord, or the exiting nerve roots are seen . The neural foramina are grossly patent bilaterally. T5-T6: No appreciable compromise to the thecal sac, spinal cord, or the exiting nerve roots are seen . The neural foramina are grossly patent bilaterally. T6-T7: No appreciable compromise to the thecal sac, spinal cord, or the exiting nerve roots are seen . The neural foramina are grossly patent bilaterally. T7-T8: No appreciable compromise to the thecal sac, spinal cord, or the exiting nerve roots are seen . The neural foramina are grossly patent bilaterally. T8-T9: No appreciable compromise to the thecal sac, spinal cord, or the exiting nerve roots are seen . The neural foramina are grossly patent bilaterally. T9-T10: No appreciable compromise to the thecal sac, spinal cord, or the exiting nerve roots are see n. The neural foramina are grossly patent bilaterally. T10-T11: No appreciable compromise to the thecal sac, spinal cord, or the exiting nerve roots are se en. The neural foramina are grossly patent bilaterally. T11-T12: No appreciable compromise to the thecal sac, spinal cord, or the exiting nerve roots are se en. The neural foramina are grossly patent bilaterally. T12-L1: No appreciable compromise to the thecal sac, spinal cord, or the exiting nerve roots are see n. The neural foramina are grossly patent bilaterally. CONCLUSION: There are old compression deformities of T8, T10, T12, L2 with subacute superior endplate depression of L1 and probable posterior portion of superior endplate T12 without any significant compromise to t he exiting nerve roots or the thecal sac. Electronically signed by: Noam Kramer MD 02/18/2018 11:44 AM EDT
--- NOTE | 2018-02-18 11:47 | MR ---
EXAM DATE: 02/18/2018 11:08 AM EDT AGE/SEX: 57 years / Female INDICATIONS: . Degeneration of Disc CLINICAL DATA: This is the patient's initial encounter. Patient reports that signs and symptoms have been present for 1 day and indicates a pain score of 4/10. MEDICAL/SURGICAL HISTORY: Hypertension. . Wrist sx, and Rt shoulder sx. COMPARISON: No prior exams available for comparison. TECHNIQUE: Multiplanar, multisequence MRI of the lumbar spine was performed without contrast. Patie nt was scanned in a sitting position; neutral, flexion, and extension scans were performed in the sa gittal plane. FINDINGS: The most caudal-appearing lumbar vertebra is numbered as L5. VERTEBRAE: There is severe height loss of the L2 vertebral body with approximately 75% height loss c entrally. However, there is no significant bone marrow edema indicating that this is a chronic findin g. There is mild height loss at the superior endplate of L1 with adjacent endplate edema and a linear low signal intensity line. Mild focal endplate edema is present at the posterior superior T12 verteb ral body. Increased T2 signal is present at the anterior L4-L5 endplates that is likely degenerative in etiology. Mild vertebral body height loss is also present at L4. CONUS: Normal level and configuration. T12-L1: There is central posterior disc osteophyte. Mild facet hypertrophy is present. No spinal can al stenosis or neural foraminal stenosis is present. L1-L2: There is moderate facet and ligamentum flavum hypertrophy with diffuse disc bulge and posteri or convexity of the posterior superior L2 margin. This results in mild spinal canal stenosis and effa cement of the lateral recesses. No neural foraminal narrowing is appreciated. L2-L3: There is a diffuse disc bulge with mild to moderate facet and ligamentum flavum hypertrophy. Lateral recesses are effaced. No spinal canal stenosis is identified. There is mild right neural fora nathan narrowing. L3-L4: There is a moderate diffuse disc bulge with moderate facet and ligamentum flavum hypertrophy. Mild spinal canal stenosis is present and there is mild right neural foraminal narrowing. L4-L5: Decreased disc height with disc desiccation and a mild diffuse disc bulge. There is moderate facet hypertrophy. Lateral recesses are mildly effaced but no significant spinal canal stenosis is pr esent. There is mild narrowing of the caudal aspect of the left neural foramen. L5-S1: Disc desiccation with a mild disc bulge and mild facet hypertrophy. No spinal canal stenosis or neural foraminal stenosis is present. Other: The visualized surrounding structures demonstrate no acute abnormality. CONCLUSION: 1. There is an acute endplate compression fracture at the superior endplate of L1 with mild height l oss estimated at 20%. 2. Mild endplate edema at the posterior superior endplate of T12 could be acute or related to degene rative change. There is a severe compression fracture of the L2 vertebral body which is chronic. 3. Otherwise, there is a multilevel degenerative change of the lumbar spine with spinal canal stenos is at L1-L2 and L3-L4. Electronically signed by: Thony Rivera MD 02/18/2018 11:45 AM EDT
--- NOTE | 2018-02-18 15:09 | P.PNCC ---
Subjective Brief History: humerus fracture Likely old vertebral fractures of the T SPINE 24 Hour Review/Hospital Course: 02/17 Remains stable Complains pain of the site of the fractured humerus Daria Coma Score is 15 abdomen-soft Hemodynamically normal 02/18 HD normal neuro intact GCS 15 abdomen-soft Objective Vital Signs / I&O: Vital Signs 02/17/18 16:00 02/17/18 19:23 02/17/18 20:00 Temperature 98 F 98.7 F Pulse Rate 84 82 Respiratory Rate 16 18 22 Blood Pressure 155/77 H 154/72 H Pulse Oximetry 99 99 02/17/18 22:35 02/18/18 00:00 02/18/18 04:00 Temperature 98.7 F 98.6 F Pulse Rate 65 74 72 Respiratory Rate 20 20 Blood Pressure 158/77 H 151/71 H Pulse Oximetry 100 96 02/18/18 07:51 02/18/18 08:00 02/18/18 10:00 Temperature 98.8 F Pulse Rate 68 82 Respiratory Rate 14 16 Blood Pressure 166/83 H Pulse Oximetry 99 02/18/18 11:46 02/18/18 13:23 Temperature 98.4 F 97.8 F Pulse Rate 72 70 Respiratory Rate 15 20 Blood Pressure 160/70 H 156/74 H Pulse Oximetry 100 98 Intake & Output 02/17/18 02/18/18 02/18/18 18:59 06:59 18:59 Intake Total 750 / 750 750 / 750 Output Total 800 / 800 800 / 800 Balance -50 / -50 -50 / -50 Weight 53.4 kg Intake: Oral 750 / 750 750 / 750 Output: Urine 800 / 800 800 / 800 Other: # Voids 1 Date of Last Bowel Movement 02/15/18 02/15/18 02/15/18 # Bowel Movements 0 Result Diagrams: 02/18/18 02:53 02/18/18 02:53 Imaging: Impressions Lumbar Spine MRI 02/18/18 00:00 CONCLUSION: 1. There is an acute endplate compression fracture at the superior endplate of L1 with mild height loss estimated at 20%. 2. Mild endplate edema at the posterior superior endplate of T12 could be acute or related to degenerative change. There is a severe compression fracture of the L2 vertebral body which is chronic. 3. Otherwise, there is a multilevel degenerative change of the lumbar spine with spinal canal stenosis at L1-L2 and L3-L4. Thoracic Spine MRI 02/18/18 00:00 CONCLUSION: There are old compression deformities of T8, T10, T12, L2 with subacute superior endplate depression of L1 and probable posterior portion of superior endplate T12 without any significant compromise to the exiting nerve roots or the thecal sac. Disinhibition Score: 15.75 Aggression Score: 14.00 Lability Score: 14.00 Agitated Behavior Total Score: 15 - Exam TYPING TEACHER: GCS 15,neuro intact Hemodynamic/Cardiac: stable Pulmonary/Respiratory: clear BL Abdomen/GI Nutrition: soft Renal/I&O: Na 132 Assessment and Plan Plan: Humerus fracture nonsurgical as per orthopedic Mobility as per neurosurgery Further treatment of T-spine as per neurosurgery Pain control Transfer floor Attestation: Patient seen and examined, overall stable orthopedic plan noted, neurosurgical plan pending for likely old fractures of the T spine
[2018-02-18] MEDS: Chlorhexidine Gluconate 2% 1 Pack (2 Cloths) TOPICAL SCH (17:37)
[2018-02-18] MEDS: Sod Chloride 0.9% Inj 1,000 ML IV.CONT SCH ×3 (20:21→23:03)
[2018-02-19] MEDS: Sod Chloride 0.9% Inj 1,000 ML IV.CONT SCH ×3 (03:24→23:47)
[2018-02-19] MEDS: Chlorhexidine Gluconate 2% 1 Pack (2 Cloths) TOPICAL SCH (04:23)
[2018-02-19] MEDS: Senna/Docusate Sodium 8.6/50 MG Tablet PO SCH ×2 (09:22→22:28)
[2018-02-19] MEDS: Enoxaparin Inj 30 MG/0.3 ML Syringe SQ SCH ×2 (09:22→22:26)
[2018-02-19] MEDS: Metoprolol Tartrate 25 MG Tablet PO SCH ×2 (09:22→22:27)
[2018-02-19] MEDS: amLODIPine 5 MG Tablet PO SCH (09:22)
[2018-02-19] MEDS: Famotidine 20 MG Tablet PO SCH ×2 (09:22→22:27)
--- NOTE | 2018-02-19 11:18 | P.PN ---
Subjective Interval history: Trauma PTD: 4 Patient lying in bed. No distress noted. Asleep during rounds. Physical Exam Vital signs: Vital Signs 02/18/18 11:46 02/18/18 13:23 02/18/18 16:00 Temperature 98.4 F 97.8 F 98.0 F Pulse Rate 72 70 73 Respiratory Rate 15 20 18 Blood Pressure 160/70 H 156/74 H 145/72 H Pulse Oximetry 100 98 97 02/18/18 17:46 02/18/18 19:59 02/18/18 20:00 Temperature 98.0 F Pulse Rate 98 H 74 84 Respiratory Rate 17 Blood Pressure 162/80 H Pulse Oximetry 97 02/18/18 23:04 02/19/18 00:00 02/19/18 00:10 Temperature 98.0 F Pulse Rate 75 69 Respiratory Rate 18 16 Blood Pressure 152/75 H Pulse Oximetry 96 02/19/18 00:45 02/19/18 04:00 02/19/18 04:11 Temperature 98.1 F Pulse Rate 73 69 Respiratory Rate 16 16 Blood Pressure 141/80 H Pulse Oximetry 96 02/19/18 04:22 02/19/18 08:00 Temperature 98.0 F Pulse Rate 72 Respiratory Rate 18 18 Blood Pressure 165/77 H Pulse Oximetry 98 Intake & Output 02/18/18 02/19/18 02/19/18 18:59 06:59 18:59 Intake Total 480 / 480 480 / 480 Output Total 300 / 300 Balance 180 / 180 480 / 480 Weight 53.4 kg Intake: Oral 480 / 480 480 / 480 Output: Urine 300 / 300 Other: # Voids 2 4 Date of Last Bowel Movement 02/15/18 # Bowel Movements 0 Narrative: GENERAL: This is a 57-year-old female lying in bed asleep. No distress noted. SKIN: Warm and dry. HEAD: Atraumatic. Normocephalic. EYES: PERRLA ENT: No nasal bleeding or discharge. Mucous membranes pink and moist. NECK: Trachea midline. No JVD. CARDIOVASCULAR: Regular rate and rhythm. RESPIRATORY: No accessory muscle use. Lungs are clear to auscultation. Breath sounds equal bilaterally. No distress or dyspnea. GASTROINTESTINAL: BS + x 4 quads. Abdomen soft, non-tender, nondistended. MUSCULOSKELETAL: Extremities without cyanosis, or edema. + peripheral pulses x 4 extremities. Warm with good capillary refill and sensation. MAEW. NEUROLOGICAL: Asleep. Results - Labs CBC & Chem 7: 02/18/18 02:53 02/18/18 02:53 - Imaging Impressions Lumbar Spine MRI 02/18/18 00:00 CONCLUSION: 1. There is an acute endplate compression fracture at the superior endplate of L1 with mild height loss estimated at 20%. 2. Mild endplate edema at the posterior superior endplate of T12 could be acute or related to degenerative change. There is a severe compression fracture of the L2 vertebral body which is chronic. 3. Otherwise, there is a multilevel degenerative change of the lumbar spine with spinal canal stenosis at L1-L2 and L3-L4. Thoracic Spine MRI 02/18/18 00:00 CONCLUSION: There are old compression deformities of T8, T10, T12, L2 with subacute superior endplate depression of L1 and probable posterior portion of superior endplate T12 without any significant compromise to the exiting nerve roots or the thecal sac. Assessment and Plan - Plan OUZINKIE: This is a 57-year-old female who was found on the floor of a skilled nursing. Trauma transfer from [facility]. INJURIES: RIGHT clavicle fx (non-op) RIGHT humerus T1, T5, T5, T8, T12 compression fx (non-op OLD) L1 and L2 compression fx (non-op OLD) LEFT proximal humerus fx (non-op) Procedures: Consults: Neurosurgery. Orthopedics. Case management. Diet: Regular diet. Tolerating po diet. Encourage good po intake with each meal. Pulmonary: Encourage good pulmonary toileting. IS at bedside and pt encouraged to use. Rationale for use explained to patient, and verbalized understanding. PAIN Management: Percocet 5-7.5 mg q 4h. Morphine 4 mg q 4h. . Ofirmev. Activity: BR. Pt and OT ordered. (WBS?) GI prophylaxis: Pepcid 20 mg BID po. Reglan 10 mg q6h. Bowel regimen: Althea-colace. MOM. LBM: 02/15 DVT prophylaxis: Mechanical VTE with SCDs. Chemical management with Lovenox 30 mg BID. DC Planning: Case management consulted for assistance with final discharge disposition. Patient lives in an NURSING HOME. Emotional support provided to patient and family at bedside and plan of care discussed. Discussed with RN at bedside. Discussed pt condition and plan of care with collaborating trauma surgeon. Patient is hemodynamically stable and being managed on the med/surg floor. The trauma team will round each day, and evaluate plan of care on a daily basis. RIGHT clavicle fx (non-op) RIGHT humerus LEFT proximal humerus fx (non-op). His consulted and assisting in management care Fractures are nonoperative at this time Supportive care Pain management PT and OT ordered Left upper extremity sling and swathe May apply sling to right upper extremity as well Await weightbearing status from orthopedics T1, T5, T5, T8, T12 compression fx (non-op OLD) L1 and L2 compression fx (non-op OLD) Neurosurgery consulted and assisting in management and care 02/18: MRI T spine - old compression deformities of T8, T10, T12, L2 with subacute superior endplate depression of L1 and probable posterior portion of superior endplate T12 without any significant compromise to the exiting nerve roots or the thecal sac. 02/18: MRI L spine - acute endplate compression fracture at the superior endplate of L1 with mild height loss estimated at 20%. Mild endplate edema at the posterior superior endplate of T12 could be acute or related to degenerative change. There is a severe compression fracture of the L2 vertebral body which is chronic. multilevel degenerative change of the lumbar spine with spinal canal stenosis at L1-L2 and L3-L4. Await further plan and care from neurosurgery Supportive care Pain management PT and OT ordered Await advancement off bed rest from neurosurgery
--- NOTE | 2018-02-19 18:18 | P.PNNS ---
Subjective Interval history: 02/17: Complains of some pain along the left chest wall. No midline thoracic or lumbar pain. She states that she has had a previous cervical spine fracture, is not aware of any previous lumbar fractures. She apparently resides at an [facility] and uses a walker to ambulate. It is unclear why she has any chronic gait difficulty. 02/18: The patient is seen after returning from MRI this morning. She complains of pain to the left upper extremity which is in a sling. She does say she has pain to the back. She spontaneously and purposefully moves the right upper and both lower extremities. The midline cervical and thoracolumbar spines are nontender to palpation but the patient is tender to palpation across the left scapula. 02/19: This evening the patient is awake and alert in bed watching TV. She continues to have pain across the low back but denies any pain, numbness or tingling to the lower extremities. She did say she had some pain earlier where the "leg connects into the torso" but was not to define it any further. She was pointing to the groin area. Her back pain is her usual without any change. There was no change in her sensorimotor exam. <Scooby Srivastava E - Last Filed: 02/19/18 18:24> Physical Exam Vital signs: Vital Signs 02/18/18 19:59 02/18/18 20:00 02/18/18 23:04 Temperature 98.0 F Pulse Rate 74 84 Respiratory Rate 17 18 Blood Pressure 162/80 H Pulse Oximetry 97 02/19/18 00:00 02/19/18 00:10 02/19/18 00:45 Temperature 98.0 F Pulse Rate 75 69 Respiratory Rate 16 16 Blood Pressure 152/75 H Pulse Oximetry 96 02/19/18 04:00 02/19/18 04:11 02/19/18 04:22 Temperature 98.1 F Pulse Rate 73 69 Respiratory Rate 16 18 Blood Pressure 141/80 H Pulse Oximetry 96 02/19/18 08:00 02/19/18 12:00 02/19/18 16:00 Temperature 98.0 F 98.2 F 98.3 F Pulse Rate 72 79 77 Respiratory Rate 18 18 17 Blood Pressure 165/77 H 128/67 138/85 Pulse Oximetry 98 99 99 Intake & Output 02/18/18 02/19/18 02/19/18 18:59 06:59 18:59 Intake Total 480 / 480 480 / 480 960 / 960 Output Total 300 / 300 Balance 180 / 180 480 / 480 960 / 960 Weight 53.4 kg Intake: Oral 480 / 480 480 / 480 960 / 960 Output: Urine 300 / 300 Other: # Voids 2 4 22 Date of Last Bowel Movement 02/15/18 02/15/18 # Bowel Movements 0 3 Narrative: GENERAL: The patient is awake & alert in bed watching TV. Her affect is fairly normal & she readily interacts. She is not in any apparent distress. HEENT: Normocephalic, atraumatic. MUSCULOSKELETAL: Moves RUE & BLE spontaneously & purposefully w/o difficulty. The LUE is in a sling and ecchymosis is noted to the arm. The BLE are NTTP. The midline cervical & thoracolumbar spine are NTTP. She is minimally TTP across the low back. NEUROLOGICAL: AAOx3. Mild dysarthric speech but clear. Sensation is intact to light touch to the BLE. Muscle strength is essentially normal to all major flexion & extension muscle groups of the BLE. <Scooby Srivastava E - Last Filed: 02/19/18 18:24> Vital signs: Vital Signs 02/18/18 23:04 02/19/18 00:00 02/19/18 00:10 Temperature 98.0 F Pulse Rate 75 69 Respiratory Rate 18 16 Blood Pressure 152/75 H Pulse Oximetry 96 02/19/18 00:45 02/19/18 04:00 02/19/18 04:11 Temperature 98.1 F Pulse Rate 73 69 Respiratory Rate 16 16 Blood Pressure 141/80 H Pulse Oximetry 96 02/19/18 04:22 02/19/18 08:00 02/19/18 12:00 Temperature 98.0 F 98.2 F Pulse Rate 72 79 Respiratory Rate 18 18 18 Blood Pressure 165/77 H 128/67 Pulse Oximetry 98 99 02/19/18 16:00 Temperature 98.3 F Pulse Rate 77 Respiratory Rate 17 Blood Pressure 138/85 Pulse Oximetry 99 Intake & Output 02/19/18 02/19/18 02/20/18 06:59 18:59 06:59 Intake Total 480 / 480 960 / 960 Balance 480 / 480 960 / 960 Weight 53.4 kg Intake: Oral 480 / 480 960 / 960 Other: # Voids 4 22 Date of Last Bowel Movement 02/15/18 # Bowel Movements 0 3 <Ravi Sheppard - Last Filed: 02/19/18 21:46> Assessment and Plan - Plan Impression: 1. Multiple thoracic and lumbar spine fractures noted on CT scan. These appear chronic but cannot totally rule out an acute compression fracture. The patient continues to do well. She continues to have pain to the LUE 2/2 her injury. There is no sensorimotor deficit to the BLE. Past 24 hrs: Afebrile. Intermittently elevated SBP. No labs for today. MRI thoracic spine w/o contrast : "CONCLUSION: There are old compression deformities of T8, T10, T12, L2 with subacute superior endplate depression of L1 and probable posterior portion of superior endplate T12 without any significant compromise to the exiting nerve roots or the thecal sac. Electronically signed by: Noam Kramer MD 02/18/2018 11:44 AM EDT" MRI lumbar spine w/o contrast : "CONCLUSION: 1. There is an acute endplate compression fracture at the superior endplate of L1 with mild height loss estimated at 20%. 2. Mild endplate edema at the posterior superior endplate of T12 could be acute or related to degenerative change. There is a severe compression fracture of the L2 vertebral body which is chronic. 3. Otherwise, there is a multilevel degenerative change of the lumbar spine with spinal canal stenosis at L1-L2 and L3-L4. Electronically signed by: Thony Rivera MD 02/18/2018 11:45 AM EDT" Plan: Primary & critical care management per Trauma. Pain control. <Scooby Srivastava - Last Filed: 02/19/18 18:24> - Attending Attestation The exam, history, and the medical decision-making described in the above note were completed with the assistance of the mid-level provider. I reviewed and agree with the findings presented. I attest that I had a [id number] encounter with the patient on the same day, and personally performed and documented my assessment and findings in the medical record. MRI thoracic and lumbar spine images reviewed. Possible acute to subacute mild superior L1 compression fracture. Other fractures appear chronic. May mobilize out of bed with TLSO brace. Follow-up x-ray lumbar spine 10-14 days <Ravi Sheppard - Last Filed: 02/19/18 21:46>
[2018-02-20] MEDS: Chlorhexidine Gluconate 2% 1 Pack (2 Cloths) TOPICAL SCH (05:32)
[2018-02-20] MEDS: Sod Chloride 0.9% Inj 1,000 ML IV.CONT SCH ×2 (08:32→18:47)
[2018-02-20] MEDS: Enoxaparin Inj 30 MG/0.3 ML Syringe SQ SCH ×2 (08:32→22:38)
[2018-02-20] MEDS: Famotidine 20 MG Tablet PO SCH ×2 (08:33→22:38)
[2018-02-20] MEDS: Senna/Docusate Sodium 8.6/50 MG Tablet PO SCH ×2 (08:33→22:39)
[2018-02-20] MEDS: Metoprolol Tartrate 25 MG Tablet PO SCH ×2 (08:33→22:38)
[2018-02-20] MEDS: amLODIPine 5 MG Tablet PO SCH (08:33)
--- NOTE | 2018-02-20 13:08 | P.PNNS ---
Subjective Interval history: 02/20: back pain controlled, feeling a bit better <Lety Coffey - Last Filed: 02/20/18 13:09> Physical Exam Vital signs: Vital Signs 02/19/18 16:00 02/19/18 20:00 02/19/18 23:46 Temperature 98.3 F 98.8 F Pulse Rate 77 85 Respiratory Rate 17 16 18 Blood Pressure 138/85 156/72 H Pulse Oximetry 99 97 02/19/18 23:47 02/20/18 00:00 02/20/18 04:00 Temperature 98.3 F 98.5 F Pulse Rate 78 77 Respiratory Rate 18 16 16 Blood Pressure 154/82 H 174/84 H Pulse Oximetry 96 96 02/20/18 08:00 Temperature 97.8 F Pulse Rate 70 Respiratory Rate 20 Blood Pressure 158/83 H Pulse Oximetry 94 L Intake & Output 02/19/18 02/20/18 02/20/18 18:59 06:59 18:59 Intake Total 960 / 960 720 / 720 Balance 960 / 960 720 / 720 Weight 53.4 kg Intake: Oral 960 / 960 720 / 720 Other: # Voids 22 7 Date of Last Bowel Movement 02/15/18 02/19/18 # Bowel Movements 3 0 Narrative: GENERAL: awake & alert, not in any apparent distress. HEENT: Normocephalic MUSCULOSKELETAL: Moves RUE & BLE spontaneously & purposefully w/o difficulty. The LUE is in a sling and ecchymosis is noted to the arm. NEUROLOGICAL: AAOx3. Muscle strength is essentially normal to all major flexion & extension muscle groups of the BLE. <Lety Coffey - Last Filed: 02/20/18 13:09> Vital signs: Vital Signs 02/19/18 23:46 02/19/18 23:47 02/20/18 00:00 Temperature 98.3 F Pulse Rate 78 Respiratory Rate 18 18 16 Blood Pressure 154/82 H Pulse Oximetry 96 02/20/18 04:00 02/20/18 08:00 02/20/18 12:00 Temperature 98.5 F 97.8 F 98.1 F Pulse Rate 77 70 71 Respiratory Rate 16 20 18 Blood Pressure 174/84 H 158/83 H 157/82 H Pulse Oximetry 96 94 L 95 02/20/18 16:00 Temperature 98.2 F Pulse Rate 70 Respiratory Rate 19 Blood Pressure 155/86 H Pulse Oximetry 97 Intake & Output 02/20/18 02/20/18 02/21/18 06:59 18:59 06:59 Intake Total 720 / 720 960 / 960 Output Total 200 / 200 Balance 720 / 720 760 / 760 Weight 53.4 kg Intake: Oral 720 / 720 960 / 960 Output: Urine 200 / 200 Other: # Voids 7 4 Date of Last Bowel Movement 02/19/18 # Bowel Movements 0 0 Narrative: The patient is alert, awake. Comfortable, in no acute distress. Speech is fluent. Cranial nerve examination: pupils to be equal, round and reactive to light. Extra-ocular movements are intact. Facial motor and sensory function are normal and symmetrical. Gross hearing appears intact. Sternocleidomastoid and trapezius muscles are symmetrical. Other cranial nerves are intact. Neck is soft and supple with a good range of motion without pain. Muscle strength is normal in all muscle groups of both upper and lower extremities. Sensory examination is intact to light touch and pin prick in both the upper and lower extremities. Deep tendon reflexes are symmetrical in both upper and lower extremities. There is a bilateral plantar flexion response. Cerebellar examination is unremarkable, without deficits. Lungs are clear Heart regular rhythm is regular rate Skin warm and dry <Vernon Mcarthur - Last Filed: 02/20/18 20:01> Assessment and Plan - Plan Impression: Cervical Spine CT 02/16/18 00:00 CONCLUSION: No acute bony injury in the cervical spine Head CT 02/16/18 00:00 CONCLUSION: No acute intracranial injury. Thoracic Spine CT 02/16/18 02:11 CONCLUSION: Compression fracture injuries present throughout the visualized spine Lumbar Spine MRI 02/18/18 00:00 CONCLUSION: 1. There is an acute endplate compression fracture at the superior endplate of L1 with mild height loss estimated at 20%. 2. Mild endplate edema at the posterior superior endplate of T12 could be acute or related to degenerative change. There is a severe compression fracture of the L2 vertebral body which is chronic. 3. Otherwise, there is a multilevel degenerative change of the lumbar spine with spinal canal stenosis at L1-L2 and L3-L4. Thoracic Spine MRI 02/18/18 00:00 CONCLUSION: There are old compression deformities of T8, T10, T12, L2 with subacute superior endplate depression of L1 and probable posterior portion of superior endplate T12 without any significant compromise to the exiting nerve roots or the thecal sac. Plan: cont nonsurgical management with a TLSO brace <Lety Coffey - Last Filed: 02/20/18 13:09> - Plan Neuro: neuro checks, cont nonsurgical management with a TLSO brace Pulmonary: aggressive pulmonary toilette, nasotracheal suction, and breathing treatments with nebulizers. Daily PT and OT Renal: Continue to monitor closely urine output, BUN and creatinine Endocrine: Continue to Monitor serial Acu checks and SSI as needed in detail ID continue to monitor for signs of infection Continue Protonix for stress ulcer prophylaxis Continue Eligio hose and SCD's for DVT prophylaxis Further recommendations will be provided depending on the patient's clinical evaluation and follow up studies. \ The exam, history, and the medical decision-making described in the above note were completed with the assistance of the mid-level provider. I reviewed and agree with the findings presented. I attest that I had a [id number] encounter with the patient on the same day, and personally performed and documented my assessment and findings in the medical record. <Vernon Mcarthur - Last Filed: 02/20/18 20:01>
--- NOTE | 2018-02-20 14:56 | P.PN ---
Subjective Interval history: TRAUMA PTD: 5 Lying in bed. No complaints offered. ""I'm tired." "Thank you for checking on me and taking care of me." Physical Exam Vital signs: Vital Signs 02/19/18 16:00 02/19/18 20:00 02/19/18 23:46 Temperature 98.3 F 98.8 F Pulse Rate 77 85 Respiratory Rate 16 18 Blood Pressure 138/85 156/72 H Pulse Oximetry 99 97 02/19/18 23:47 02/20/18 00:00 02/20/18 04:00 Temperature 98.3 F 98.5 F Pulse Rate 78 77 Respiratory Rate 18 16 16 Blood Pressure 154/82 H 174/84 H Pulse Oximetry 96 96 02/20/18 08:00 02/20/18 12:00 Temperature 97.8 F 98.1 F Pulse Rate 70 71 Respiratory Rate 20 18 Blood Pressure 158/83 H 157/82 H Pulse Oximetry 94 L 95 Intake & Output 02/19/18 02/20/18 02/20/18 18:59 06:59 18:59 Intake Total 960 / 960 720 / 720 Balance 960 / 960 720 / 720 Weight 53.4 kg Intake: Oral 960 / 960 720 / 720 Other: # Voids 22 7 Date of Last Bowel Movement 02/15/18 02/19/18 # Bowel Movements 3 0 Narrative: ] GENERAL: This is a 57-year-old female lying in bed. No distress noted. SKIN: Warm and dry. HEAD: Atraumatic. Normocephalic. EYES: PERRLA ENT: No nasal bleeding or discharge. Mucous membranes pink and moist. NECK: Trachea midline. No JVD. CARDIOVASCULAR: Regular rate and rhythm. RESPIRATORY: No accessory muscle use. Lungs are clear to auscultation. Breath sounds equal bilaterally. No distress or dyspnea. GASTROINTESTINAL: BS + x 4 quads. Abdomen soft, non-tender, nondistended. MUSCULOSKELETAL: Extremities without cyanosis, or edema. + peripheral pulses x 4 extremities. Warm with good capillary refill and sensation. MAEW. NEUROLOGICAL: A & O x 3. Results - Labs CBC & Chem 7: 02/18/18 02:53 02/18/18 02:53 Assessment and Plan - Plan [id number]: This is a 57-year-old female who was found on the floor of a skilled nursing. Trauma transfer from [facility]. INJURIES: RIGHT clavicle fx (non-op) RIGHT humerus T1, T5, T5, T8, T12 compression fx (non-op OLD) L1 and L2 compression fx (non-op OLD) LEFT proximal humerus fx (non-op) Procedures: Consults: Neurosurgery. Orthopedics. Case management. Diet: Regular cardiac diet. Tolerating po diet. Encourage good po intake with each meal. Pulmonary: Encourage good pulmonary toileting. IS at bedside and pt encouraged to use. Rationale for use explained to patient, and verbalized understanding. PAIN Management: Percocet 5-7.5 mg q 4h. Morphine 4 mg q 4h for breakthrough pain. . Ofirmev. Activity: OOB Pt and OT ordered. (WBS?) TLSO brace when out of bed. GI prophylaxis: Pepcid 20 mg BID po. Reglan 10 mg q6h. Bowel regimen: Althea-colace. MOM. LBM: 02/19. DVT prophylaxis: Mechanical VTE with SCDs. Chemical management with Lovenox 30 mg BID. DC Planning: Case management consulted for assistance with final discharge disposition. Patient lives in an [facility]. Trauma services complete. Non- operative management at this time of orthopedic and back fractures. Therefore she may transfer back to [facility] for continued care. DC order placed. Emotional support provided to patient at bedside and plan of care discussed. Discussed with RN at bedside. Discussed pt condition and plan of care with collaborating trauma surgeon. Patient is hemodynamically stable and being managed on the med/surg floor. The trauma team will round each day, and evaluate plan of care on a daily basis. RIGHT clavicle fx (non-op) RIGHT humerus LEFT proximal humerus fx (non-op). Orthopedics consulted and assisting in management care Fractures are nonoperative at this time Supportive care Pain management PT and OT ordered Left upper extremity sling and swathe May apply sling to right upper extremity as well Await weightbearing status from orthopedics T1, T5, T5, T8, T12 compression fx (non-op OLD) L1 and L2 compression fx (non-op OLD) Neurosurgery consulted and assisting in management and care 02/18: MRI T spine - old compression deformities of T8, T10, T12, L2 with subacute superior endplate depression of L1 and probable posterior portion of superior endplate T12 without any significant compromise to the exiting nerve roots or the thecal sac. 02/18: MRI L spine - acute endplate compression fracture at the superior endplate of L1 with mild height loss estimated at 20%. Mild endplate edema at the posterior superior endplate of T12 could be acute or related to degenerative change. There is a severe compression fracture of the L2 vertebral body which is chronic. multilevel degenerative change of the lumbar spine with spinal canal stenosis at L1-L2 and L3-L4. Nonoperative management at this time Supportive care Pain management PT and OT ordered Pt may ne OOB with TLSO brace
[2018-02-21] MEDS: Sod Chloride 0.9% Inj 1,000 ML IV.CONT SCH ×2 (06:28→14:28)
[2018-02-21] MEDS: Famotidine 20 MG Tablet PO SCH (10:09)
[2018-02-21] MEDS: Metoprolol Tartrate 25 MG Tablet PO SCH (10:09)
[2018-02-21] MEDS: amLODIPine 5 MG Tablet PO SCH (10:09)
[2018-02-21] MEDS: Senna/Docusate Sodium 8.6/50 MG Tablet PO SCH (10:10)
[2018-02-21] MEDS: Enoxaparin Inj 30 MG/0.3 ML Syringe SQ SCH (10:10)
--- NOTE | 2018-02-21 17:38 | P.DS ---
Date of admission: 02/16/18 03:20 Primary care physician: UNKNOWN Brief History from admission: 57-year-old female transfer from outside institution after a fall, report was that patient had a T1 compression fracture, right humeral head fracture. Imaging performed here does not confirm these finding, patient has multiple old subacute T-spine fractures. She has right humeral head fracture, she is neurologically intact hemodynamically normal. DS: Diagnosis - Discharge Diagnosis (1) Clavicle fracture Status: Acute (2) Humerus fracture Status: Acute (3) Fall Status: Acute DS: Summary Hospital Course: HUGHES:Found on the floor of a [facility]. Trauma transfer from [place]. INJURIES: RIGHT clavicle fx (non-op) RIGHT humerus fx T1, T5, T5, T8, T12 compression fx (non-op OLD) L1 and L2 compression fx (non-op OLD) LEFT proximal humerus fx (non-op) RIGHT clavicle fx, RIGHT humerus, LEFT proximal humerus fx Orthopedics consulted, F/U outpatient Nonoperative management Supportive care Pain control PT and OT ordered Maintain LUE sling May apply sling to right upper extremity as well T1, T5, T5, T8, T12 compression fx, L1 and L2 compression fx Neurosurgery consulted, F/U outpatient 02/18: MRI T spine - old compression deformities of T8, T10, T12, L2 with subacute superior endplate depression of L1 and probable posterior portion of superior endplate T12 without any significant compromise to the exiting nerve roots or the thecal sac. 02/18: MRI L spine - acute endplate compression fracture at the superior endplate of L1 with mild height loss estimated at 20%. Mild endplate edema at the posterior superior endplate of T12 could be acute or related to degenerative change. There is a severe compression fracture of the L2 vertebral body which is chronic. multilevel degenerative change of the lumbar spine with spinal canal stenosis at L1-L2 and L3-L4. Nonoperative management Supportive care Pain control PT and OT ordered F/U with PCP in 1 week Plan of care discussed with patient at bedside. Collaborating Trauma surgeon agrees with plan. Case management consulted to assist with discharge planning. Patient is clear from trauma surgery standpoint to safely discharge to rehab. - Time Spent with Patient Total time spent providing and/or coordinating discharge services: - Quality: VTE Deep Vein Thrombosis/Pulmonary Embolism Present on Admission: No Exam Vital signs: Vital Signs 02/20/18 20:00 07/18/18 23:50 02/21/18 00:00 Temperature 98.0 F 97.6 F Pulse Rate 77 71 Respiratory Rate 18 17 Blood Pressure 143/71 H 154/74 H Pulse Oximetry 99 96 02/21/18 04:00 02/21/18 05:44 02/21/18 08:00 Temperature 97.7 F 97.6 F Pulse Rate 68 60 Respiratory Rate 18 18 Blood Pressure 169/84 H 157/77 H Pulse Oximetry 100 99 02/21/18 12:00 Temperature 97.9 F Pulse Rate 69 Respiratory Rate 17 Blood Pressure 154/67 H Pulse Oximetry 100 Intake & Output 02/20/18 02/21/18 02/21/18 18:59 06:59 18:59 Intake Total 960 / 960 700 / 700 Output Total 200 / 200 Balance 760 / 760 700 / 700 Weight 53.4 kg Intake: Oral 960 / 960 700 / 700 Output: Urine 200 / 200 Other: # Voids 4 7 9 Date of Last Bowel Movement 02/21/18 # Bowel Movements 0 1 Narrative: GENERAL: 57 year old well-nourished female lying in bed. SKIN: Warm and dry. HEAD:Normocephalic. ENT: No nasal bleeding or discharge. Mucous membranes pink and moist. NECK: Trachea midline. No JVD. CARDIOVASCULAR: Regular rate and rhythm. RESPIRATORY: No accessory muscle use. Clear to auscultation. Breath sounds equal bilaterally. GASTROINTESTINAL: Abdomen soft, non-tender, nondistended. + BS MUSCULOSKELETAL: Extremities without cyanosis, or edema. RUE sling in place. MAEW, + perfused NEUROLOGICAL: Awake and alert. Normal speech. Results Procedures completed during hospitalization: NA - Impressions ITS Impressions Abdomen/Pelvis CT 02/16/18 00:00 CONCLUSION: No acute traumatic injury in the abdomen or pelvis. Cervical Spine CT 02/16/18 00:00 CONCLUSION: No acute bony injury in the cervical spine Chest CT 02/16/18 00:00 CONCLUSION: 1. Left proximal humeral fracture. Right clavicle fracture. Further evaluation of these areas with complete plain radiographic series of the left shoulder and right clavicle would be suggested. 2. No acute intrathoracic injury Clavicle X-Ray 02/16/18 00:00 CONCLUSION: Comminuted fractures involving the distal right clavicle and surgical neck of the right humerus. Head CT 02/16/18 00:00 CONCLUSION: No acute intracranial injury. Shoulder X-Ray 02/16/18 00:00 CONCLUSION: Comminuted fracture involving the distal right clavicle. Surgical hardware traversing a right femoral neck fracture. Chronicity of this fracture is unknown. Thoracic Spine CT 02/16/18 02:11 CONCLUSION: Compression fracture injuries present throughout the visualized spine Lumbar Spine MRI 02/18/18 00:00 CONCLUSION: 1. There is an acute endplate compression fracture at the superior endplate of L1 with mild height loss estimated at 20%. 2. Mild endplate edema at the posterior superior endplate of T12 could be acute or related to degenerative change. There is a severe compression fracture of the L2 vertebral body which is chronic. 3. Otherwise, there is a multilevel degenerative change of the lumbar spine with spinal canal stenosis at L1-L2 and L3-L4. Thoracic Spine MRI 02/18/18 00:00 CONCLUSION: There are old compression deformities of T8, T10, T12, L2 with subacute superior endplate depression of L1 and probable posterior portion of superior endplate T12 without any significant compromise to the exiting nerve roots or the thecal sac. Discharge Plan - Discharge Disposition Patient Disposition: 04 ACLF/YOVANI - Discharge Condition Condition: Stable - Discharge Order Discharge Orders: Discharge Order (Routine); Ordered 02/20/18 Ordered By: Juanis Vargas - Discharge Details Anticipated Discharge Date: 02/20/18 Discharge Comment: Transfer back to [facility]. - Physicians Team Primary Care Provider: UNKNOWN, Attending Provider: Alisha Luevano Other Providers: Arun Pulliam MD ; Rommel Keating MD ; [employer] [employer] ; David Hodge MD ; Juanis Vargas ARNP ; Emmanuel Romeo MD ; Alisha Luevano MD ; Radha Fernandez MD ; Lula Urena ARNP ; Ravi Sheppard MD ; Zenon Lewis MD
== END 2018-02-21 15:03 ==
LOC: NEPC 00:02 → NEDA 03:20 → N03 07:40 → N06 02-18 12:59
PROVIDERS: ADMIT Surgery Trauma Surgery; ATTEND Surgery Trauma Surgery